=== PATIENT | female | born 1950 | race Caucasian/White ===

== ENCOUNTER 2016-12-24 10:39 | Emergency (ER) | payer OTHER ==
[~2016-12-24 10:39] MED LIST: CELEXA10 M1; LISINOPRIL10 MG
[2016-12-24] MEDS ORDERED: LIPITOR (10:44)
[2016-12-24 11:50] LABS: BASOPHIL# 0.1 X10e3 (0-0.3); BASOPHIL% 0.6 % (0-2.5); EOSINOPHIL# 0.1 X10e3 (0-0.7); HEMATOCRIT 35.6 % (35.0-45.0); HEMOGLOBIN 11.9 gm/dL (12.0-16.0); LYMPHOCYTE# 2.7 X10e3 (1.0-3.5); LYMPHOCYTE% 21.7 % (17.0-45.0); MEAN CELL VOLUME 90.2 FL (83-96); MEAN CORPUSCULAR HEMOGLOBIN 30.2 PG (28-34); MEAN CORPUSCULAR HGB CONC 33.5 g/dL (30-36); MEAN PLATELET VOLUME 9.9 FL (6.5-11.5); MONOCYTE# 0.8 X10e3 (0-1.0); MONOCYTE% 6.8 % (3.0-12.0); NEUTROPHIL# 8.6 X10e3 (1.5-7.1); NEUTROPHIL% 69.9 % (40-75); PLATELET COUNT 303 X10e3 (140-420); RED BLOOD COUNT 3.94 X10e (3.90-5.30); RED CELL DISTRIBUTION WIDTH 14.1 % (11.0-15.5); WHITE BLOOD COUNT 12.4 X10e3 (4.0-10.5)
[2016-12-24 11:55] LABS: DIFF IND NO
[2016-12-24 12:10] LABS: ALBUMIN SERUM 4.2 g/dL (3.5-5.0); BILIRUBIN,TOTAL 0.3 mg/dL (0.2-2.0); BUN/CREATININE RATIO 32.22; CALCIUM SERUM 9.2 mg/dL (8.4-10.2); CREATININE SERUM 0.9 mg/dL (0.6-1.4); GLOM FILT RATE Estimated 67.6 mL/min (>60); POTASSIUM 3.8 mmol/L (3.5-5.1); PROTEIN TOTAL SERUM 6.9 g/dL (6.0-8.3)
== END 2016-12-24 12:57 | disposition home or self-care (01) ==
LOC: SED 10:39
PROVIDERS: Emergency Medicine
DX: R10.13 Epigastric pain (principal); R11.0 Nausea; F17.210 Nicotine dependence, cigarettes, uncomplicated; Z88.0 Allergy status to penicillin
CPT/HCPCS: 36415; 80053; 83690; 85025; 86677; 96374; 99284; C9113

== ENCOUNTER 2017-03-13 14:20 | Emergency (ER) | payer OTHER ==
--- NOTE | ~2017-03-13 | CR63 ---
[facility] A Service of [facility] & [facility] RADIOLOGY TEXT RESULTS PATIENT: RHETT ALVA LOCATION: SED : 54 UNIT #: [id number] AGE: [address]: OLEG HIGH SEX: F ORDER DR: [id number] [place] [id number] E MR#: [id number] Acc #: [id number] NAME: RHETT ALVA : 1950 SEX: F STUDY DATE/TIME: 03/13/2017 15:47 UNIT: SED ROOM: STUDY DESCRIPTION: CR Chest 2 View Attending Physician: Oleg High A.P.R.N. Ordering Physician: Oleg High A.P.R.N. Primary Care Physician: Primary Care Physician No MEDICAL IMAGING REPORT This report is preliminary unless electronic signature is present. EXAM Two-view chest HISTORY Cough, body aches, lethargy since Wednesday, 5 days ago. COMPARISON 04/02/2016 FINDINGS 2 views of the chest demonstrates pulmonary hyperinflation and hyperlucency suggesting emphysema. Mediastinal and hilar calcifications as well as parenchymal calcifications compatible with old granulomatous disease. Heart, great vessels unremarkable. Mild degenerative changes mid thoracic spine. IMPRESSION Moderate emphysema as well as evidence of old granulomatous disease. No acute findings. Dictated by... Dayton Alva M.D. THIS IS AN ELECTRONICALLY VERIFIED REPORT Dayton Alva M.D. at 03/14/2017 7:36 PM [employer] TD: 03/14/2017 14:14 JOB #: [id number] MEDICAL IMAGING REPORT Page 1 of 1
[~2017-03-13 14:20] MED LIST changes: +LIPITOR
[2017-03-13] MEDS ORDERED: AMLODIPINE BESIL1 GM PO (14:22)
[2017-03-13] MEDS ORDERED: XANAX0.5 M1 PO (14:23)
[2017-03-13] MEDS ORDERED: ANTIDEPRESSANT (14:24)
[2017-03-13] MEDS ORDERED: EFFEXOR PO (14:25)
[2017-03-13] MEDS ORDERED: BREO ELLIPTA 11 EACH INH (14:25)
== END 2017-03-13 16:52 | disposition home or self-care (01) ==
LOC: SED 14:20
DX: J40 Bronchitis, not specified as acute or chronic (principal); H66.92 Otitis media, unspecified, left ear; H60.92 Unspecified otitis externa, left ear; J44.9 Chronic obstructive pulmonary disease, unspecified; I10 Essential (primary) hypertension; Z90.710 Acquired absence of both cervix and uterus; F17.200 Nicotine dependence, unspecified, uncomplicated; Z88.0 Allergy status to penicillin; Z79.899 Other long term (current) drug therapy
CPT/HCPCS: 71020; 94640; 99283